=== PATIENT | male | born 1975 | race African-American/Black ===

== ENCOUNTER 2018-12-24 08:32 | Emergency (ER) | payer BC ==
[~2018-12-24] VITALS: Ht 182.9 cm; Wt 79.4 kg
[2018-12-24 08:51] VITALS: BP 124/75
[2018-12-24] MEDS ORDERED: MEDROL DOSEPAK4 MG ORAL (09:18)
--- NOTE | 2018-12-24 09:20 | Emergency Room Report ---
History of Present Illness General Chief Complaint: Back Pain-No Injury Source: Patient Present Illness HPI Patient present with complaints of left lower back pain with radiation to the buttock area He reports that last week he had some similar discomfort had gone to urgent care After pain medication and rest he appeared to be significantly improved this morning however upon getting up patient had again increased pain in that region Bennett more of the discomfort into the buttock area Denies any other neuropathy denies any focal weakness denies any midline back pain Denies any loss of control of bowel/urination Denies any saddle paresthesia Allergies: Coded Allergies: No Known Allergies (Unverified , 12/24/18) Patient History Past Medical History: see triage record Pertinent Family History: none Reviewed Nursing Documentation: PMH: Agreed; PSxH: Agreed Nursing Documentation-PMH Past Medical History: No Stated History Review of Systems All Other Systems: negative except mentioned in HPI Physical Exam Vital Signs Date Time Temp Pulse Resp B/P (MAP) Pulse Ox O2 Delivery O2 Flow Rate FiO2 12/24/18 08:42 97.9 65 14 124/75 98 Room Air Sp02 EP Interpretation: reviewed, normal General Appearance: well appearing, no apparent distress Head: normocephalic, atraumatic Eyes: bilateral eye PERRL, bilateral eye EOMI ENT: hearing grossly normal, normal pharynx, TMs + canals normal, uvula midline Neck: full range of motion, supple, no meningismus, no bony tend Respiratory: lungs clear, normal breath sounds, no rhonchi, no respiratory distress, no retraction, no accessory muscle use Cardiovascular #1: normal peripheral pulses, regular rate, rhythm, no edema, no gallop, no JVD, no murmur Gastrointestinal: normal bowel sounds, non tender, soft, no mass, no organomegaly, non-distended, no guarding, no hernia, no pulsatile mass, no rebound Genitourinary: no CVA tenderness Musculoskeletal: other - Some reproducible discomfort left lower back area posterior superior iliac crest on palpation, minimal discomfort as well with leg raising on the left side and the buttock area sensory intact otherwise Neurologic: oriented x3, responsive, deputy attorney general III-XII nml as tested, sensory intact Psychiatric: mood/affect normal Skin: normal color, no rash, warm/dry, palpation normal Lymphatic: normal inspection, no adenopathy Medical Decision Making Diagnostic Impression: Primary Impression: sciatica ER Course Patient has clinical findings and symptoms consistent with sciatic discomfort Other differentials such as neurological neurosurgical, orthopedic pathology also entertained Patient however does not have any other concerning exam findings and is stable for close outpatient follow-up, Last Vital Signs Date Time Temp Pulse Resp B/P (MAP) Pulse Ox O2 Delivery O2 Flow Rate FiO2 12/24/18 08:51 97.9 85 14 124/75 98 Room Air Status: unchanged Disposition: HOME, SELF-CARE Condition: Stable Scripts Methylprednisolone (Methylprednisolone*) 4MG Dspk 4 MG ORAL DIRECTED for 6 Days, #21 EA 0 Refills Day 1: Two tablets before breakfast, one after lunch, one after dinner, and two at bedtime. If started late in the day, take all six tablets at once or divide into two or three doses, unless otherwise directed by prescriber. Day 2: One tablet before breakfast, one after lunch, one after dinner, and two at bedtime Day 3: One tablet before breakfast, one after lunch, one after dinner, and one at bedtime Day 4: One tablet before breakfast, one after lunch, and one at bedtime Day 5: One tablet before breakfast and one at bedtime Day 6: One tablet before breakfast Prov: Ba Klein DO 12/24/18 Referrals: Nick East MD Patient Instructions: Sciatica Additional Instructions: Patient is provided with the discharge instructions notified to follow up with primary doctor in the next 2-3 days otherwise return to the er with any worsening symptoms. Please note that this report is being documented using DRAGON technology. This can lead to erroneous entry secondary to incorrect interpretation by the dictating instrument. Ba Klein DO Dec 24, 2018 09:20
[2018-12-24 09:37] VITALS: BP 129/88
== END 2018-12-24 09:37 | disposition home or self-care (01) ==
LOC: EMR 09:05
DX: M54.40 Lumbago with sciatica, unspecified side (principal)
CPT/HCPCS: 99281